=== PATIENT | female | born 1950 | race Caucasian/White ===

== ENCOUNTER → 2017-04-05 | Outpatient (CLI) | payer MEDICARE ==
[~2017-04-05] MED LIST: CELEXA PO; RISPERIDONE PO; SYNTHROID PO; TRAZODONE PO
--- NOTE | ~2017-04-05 | MY29 ---
[facility] A Service of [facility] & [facility] RADIOLOGY TEXT RESULTS PATIENT: AFSANEH FERGUSON LOCATION: [facility] : 46 UNIT #: [id number] AGE: [address]: Wilder Mayo MD SEX: F ORDER DR: [id number] [facility] [address] [facility]. [place], [place] [address] [id number] O MR#: [id number] #: [id number] NAME: AFSANEH FERGUSON : 1950 SEX: F STUDY DATE/TIME: 04/05/2017 11:15 UNIT: [facility] ROOM: STUDY DESCRIPTION: MY DEE SCREENING W/ CAD BILAT Attending Physician: Wilder Mayo M.D. Ordering Physician: Wilder Mayo M.D. Primary Care Physician: Wilder Mayo M.D. MEDICAL IMAGING REPORT This report is preliminary unless electronic signature is present EXAM Bilateral digital screening mammogram with CAD 04/05/2017 INDICATIONS 66-year-old female for routine screening. No reported problems and no personal history of breast cancer. Family history positive in the patient's mother. TECHNIQUE CC and MLO views of the breast were obtained and reviewed with a FDA-approved CAD device. COMPARISON 08/24/2015, 04/09/2014, 03/25/2014, 08/06/2012. FINDINGS Breast parenchyma is composed of scattered fibroglandular densities. The pattern is unchanged. In the right breast at about 9-10 o'clock, a previously documented cyst appears larger, now measuring up to about 12 mm. It is also more dense mammographically. This likely represents interval enlargement of the previously documented benign cyst but given increase in size and density mammographically, it should be further evaluated with a repeat ultrasound. There is no new dominant nodule, mass or suspicious clustered microcalcifications. Benign calcifications present. IMPRESSION 1. Enlarging nodule in the right breast, also more dense mammographically. This has been previously documented as a cyst but given the interval change of appearance mammographically, it should be further evaluated with repeat ultrasound. BIRADS: 0 Incomplete; Need additional imaging evaluation and/or prior STS. [facility] A Service of [facility] & [facility] RADIOLOGY TEXT RESULTS PATIENT: AFSANEH FER[facility]USON [id number] : [birth year] UNIT #: [id number] AGE: [address]: Wilder Mayo MD SEX: F ORDER DR: mammograms for comparison. Patients over the age of 40 are entered into a reminder system with target due date for the next mammogram. A result letter will also be sent to the patient. Dictated by... Eh Abraham M.D. THIS IS AN ELECTRONICALLY VERIFIED REPORT Eh Abraham M.D. at 04/06/2017 8:28 AM NAT/avila TD: 04/06/2017 01:35 JOB #: [id number] MEDICAL IMAGING REPORT Page 1 of 1 COPY
== END | disposition home or self-care (01) ==
LOC: CWCC 11:04
DX: Z12.31 Encounter for screening mammogram for malignant neoplasm of breast (principal); N63 Unspecified lump in breast; Z80.3 Family history of malignant neoplasm of breast
CPT/HCPCS: G0202